=== PATIENT | female | born 1990 | race Asian ===

== ENCOUNTER 2025-03-06 10:00 | Day surgery (SDC) | payer OTHER ==
[~2025-03-06] VITALS: Ht 144.8 cm; Wt 44.9 kg
[~2025-03-06 10:00] MED LIST: ACET1TAB55 PO; KETOROLAC 30 MG/ML 1 ML VIAL As Ordered ONE; LIDOCAINE 2% 100 MG/5 ML SDV (FOR ANES.) As Ordered ONE; MIDAZOLAM INJ 2 MG/2 ML VIAL As Ordered ONE; ONDANSETRON 4MG 2ML VIAL As Ordered ONE; ROCURONIUM BROMIDE 50MG/5ML VIAL As Ordered ONE; SUGAMMADEX SODIUM 500 MG/5 ML VIAL As Ordered ONE; dexAMETHasone 4 MG/ML 1 ML VIAL As Ordered ONE
[2025-03-06 10:35] LABS: PLATELET COUNT, AUTOMATED 193 10^3/uL (150-450)
[2025-03-06] MEDS ORDERED: LR 1,000 ML IV SCH ×2 (10:45→13:20)
[2025-03-06] MEDS ORDERED: IBUP600T42 PO (11:49)
[2025-03-06] MEDS ORDERED: TRAM50TA2 PO (11:53)
[2025-03-06] MEDS: ceFAZolin SOD 2 GM IV ONCE IV ONE (11:57)
[2025-03-06] MEDS ORDERED: ACETAMINOPHEN 1000MG/100ML IV BAG As Ordered ONE (11:58)
[2025-03-06] MEDS ORDERED: HYDROmorphone HCL 2 MG/ML 1 ML VIAL As Ordered ONE (13:25)
[2025-03-06] MEDS: HYDROMORPHONE HCL 0.5 MG/0.5 ML SYRINGE IV PRN (13:38)
[2025-03-06] MEDS: ONDANSETRON 4MG 2ML VIAL IV PRN (13:39)
== END 2025-03-06 15:05 | disposition home or self-care (01) ==
LOC: M SDC 10:00
PROVIDERS: ATTEND Specialist
DX: N92.0 Excessive and frequent menstruation with regular cycle (principal); Z98.51 Tubal ligation status; N85.8 Other specified noninflammatory disorders of uterus; N94.6 Dysmenorrhea, unspecified; Z30.46 Encounter for surveillance of implantable subdermal contraceptive; Z88.5 Allergy status to narcotic agent
CPT/HCPCS: 11982; 36415; 58570; 85027; 86850; 86900; 86901; 88307; J0131; J0665; J0690; J1100; J1171; J1885; J2250; J2405; J3010; S2900